=== PATIENT | male | born 1995 | race Caucasian/White ===

== ENCOUNTER 2017-08-26 10:32 | Emergency (ER) | payer OTHER ==
[~2017-08-26] VITALS: Ht 190.5 cm; Wt 63.5 kg
[2017-08-26] MEDS ORDERED: RISPERDAL1 MG PO (10:50)
[2017-08-26] MEDS ORDERED: OMEPRAZOLE20 MG PO (10:50)
[2017-08-26] MEDS ORDERED: DEXTROAMP-AMPHE10 MG PO (10:52)
[2017-08-26] MEDS ORDERED: ATIVAN1 MG PO (10:53)
[2017-08-26] MEDS ORDERED: HYOSCYAMINE0.125 MG PO (10:58)
--- NOTE | 2017-08-27 14:54 | EKG ---
[facility] [address] [facility] [place], [place] [address] Signed Normal sinus rhythm Normal ECG No previous ECGs available Confirmed by JUMA PUENTE MD ([id number]) on 08/27/2017 2:54:12 PM Electronically Signed By: JUMA PUENTE MD 08/27/17 1454 PATIENT NAME: BEATRICEESTEBAN Electrocardiogram DATE OF : [birth year] PHYSICIAN: JUMA PUENTE MD REPORT #: [id number] REPORT IS CONFIDENTIAL AND NOT TO BE RELEASED WITHOUT AUTHORIZATION
== END 2017-08-26 13:07 | disposition home or self-care (01) ==
LOC: ED 10:32
DX: S06.0X0A Concussion without loss of consciousness, initial encounter (principal); E86.0 Dehydration; F31.9 Bipolar disorder, unspecified; F90.9 Attention-deficit hyperactivity disorder, unspecified type; F41.9 Anxiety disorder, unspecified; K21.9 Gastro-esophageal reflux disease without esophagitis; Z91.018 Allergy to other foods; Z79.899 Other long term (current) drug therapy; W22.8XXA Striking against or struck by other objects, initial encounter
CPT/HCPCS: 70450; 80053; 81001; 84484; 85025; 93005; 93010; 99284; J7030

== ENCOUNTER 2018-11-18 23:18 | Emergency (ER) | payer OTHER ==
[~2018-11-18 23:18] MED LIST: ATIVAN1 MG PO; DEXTROAMP-AMPHE10 MG PO; HYOSCYAMINE0.125 MG PO; OMEPRAZOLE20 MG PO; RISPERDAL1 MG PO
--- OUTSIDE RECORDS SUMMARY | 2018-11-18 23:20 | XMS ---
PreManage Notification: ESTEBAN BARRON Security Receiving Weigher Events No recent Security Events currently on file CRITERIA MET - PDM CARE PROVIDERS BROOK RODRIGUEZ Nurse Practitioner: 08/27/2017-Current PHONE: [phone] Emmanuel has no Care Guidelines for this patient. E.DBrennan VISIT COUNT (12 MO.) [facility] JOSE GUADALUPE Lang TOTAL 3 NOTE: Visits indicate total known visits. ED/UCC VISIT TRACKING (12 MO.) [facility] COMPLAINT: - RIGHT ARM, SHOULDER PAIN [facility]2018 23[facility] DIAGNOSES: - Other chest pain - Cp - Chest Pain 08/06/2018 09:45 [facility] DIAGNOSES: - Nausea - Unspecified abdominal pain - ABD Pain - Abdominal Pain INPATIENT VISIT TRACKING ( MO.) No inpatient visits to display in this time frame [email or web address]
[2018-11-19] MEDS ORDERED: NORCO 5-325 TA1 EACH PO (00:52)
== END 2018-11-19 01:51 | disposition home or self-care (01) ==
LOC: ED 23:18
DX: S44.91XA Injury of unspecified nerve at shoulder and upper arm level, right arm, initial encounter (principal); X58.XXXA Exposure to other specified factors, initial encounter; F31.9 Bipolar disorder, unspecified; F90.9 Attention-deficit hyperactivity disorder, unspecified type; K21.9 Gastro-esophageal reflux disease without esophagitis; F17.200 Nicotine dependence, unspecified, uncomplicated; Z91.018 Allergy to other foods
CPT/HCPCS: 71045; 72125; 73060; 73090; 96374; 99284-25; J3010